=== PATIENT | male | born 1955 | race Caucasian/White ===

== ENCOUNTER 2021-03-21 17:07 | Emergency (ER) | payer MEDICARE, MEDICAID, SELFPAY ==
[2021-03-21 17:10] VITALS: BP 156/83; PULSE 94; RESP 16; TEMP 36.6; O2SAT 93
--- NOTE | 2021-03-21 17:10 | PC.NURSE ---
pt is extremely intoxicated, states he had several drinks at [employer] today and that PMH is none of RNs business and is not why he is here. pt refusing to provide information in regards to dog bite form.
[2021-03-21] MEDS: TETANUS,DIPHTHERIA,AC PERTUSSIS ADULT 0.5 ML (ADACEL) IM (17:53)
[2021-03-21] MEDS: cefTRIAXone 1 GM VIAL IM (17:54)
[2021-03-21] MEDS: LIDOCAINE HCL 1% LOCAL INJ 20 ML VIAL (17:55)
--- NOTE | 2021-03-21 18:00 | ED.WOUNDLAC ---
HPI - Wound/Laceration General Chief Complaint: Wound/Laceration Stated Complaint: dog bite on leg Time Seen by Provider: 03/21/21 17:11 Source: patient Mode of arrival: ambulatory Limitations: no limitations History of Present Illness HPI narrative: this is a 65-year-old gentleman that presents after a stray dog bit his left lower leg causing a laceration gaping about 4cm in length and his left lower leg, the patient is not up-to-date with his tetanus currently no fever chills no leg pain. Onset (ago): hour(s) Extremity Location: Left: lower leg ( gaping laceration about 4cm in length after dog bite) Place: outdoors Context: accidental Associated symptoms: none Related Data Home Medications Medication Instructions Recorded Confirmed albuterol sulfate 2 puff INHALATION PRN 03/21/21 03/21/21 famotidine 20 mg PO DAILY 03/21/21 03/21/21 hydrocodone-acetaminophen 1 tablet PO PRN 03/21/21 03/21/21 Allergies Allergy/AdvReac Type Severity Reaction Status Date / Time No Known Allergies Allergy Unverified 01/03/13 15:17 Review of Systems Review of Systems: All systems reviewed & are unremarkable except as noted in HPI and below PMFSH Past Medical History Medical History Patient denies medical problems Exam Const: General: no acute distress and alert Orientation/consciousness: patient oriented x3 HENMT: Head: normal to inspection Eyes: Conjunctivae: conjunctivae normal Pupils: Equal, round and reactive pupils present EOM: EOMs intact bilaterally Direct Ophthalmoscopy: no photophobia Neck: Neck: normal visual inspection, no lymphadenopathy and no meningeal signs Chest: Chest palpation & inspection: normal inspection of the chest Resp: Effort & Inspection: normal respiratory effort Auscultation: clear to auscultation bilaterally Cardio: Rate: regular rate Rhythm: regular rhythm Urinary Catheter: Urinary Catheter: patent and draining Back/Spine/Pelvis: Back: no CVA tenderness Skin: General skin exam: normal color Other: gaping laceration left lateral lower extremity about 4cm in length after a dog bite Extrem: General: normal to inspection and no pedal edema Psych: Appearance: grossly normal Mental Status: mental status grossly normal Course Course Emergency Course: the area was irrigated evaluated for any debris and sutures placed. Tetanus was updated and patient received a g of ceftriaxone. Vital Signs Vital signs: Vital Signs Temperature 36.6 C 03/21/21 17:10 Pulse Rate 94 03/21/21 17:10 Respiratory Rate 16 03/21/21 17:10 Blood Pressure 156/83 H 03/21/21 17:10 Pulse Oximetry 93 03/21/21 17:10 Temperature 36.6 C 03/21/21 17:10 Pulse Rate 94 03/21/21 17:10 Respiratory Rate 16 03/21/21 17:10 Blood Pressure 156/83 H 03/21/21 17:10 Pulse Oximetry 93 03/21/21 17:10 Procedures Laceration Laceration 1: Date: 03/21/21 Site: lower extremity Side (If applicable): left Size (cm): 4 Description: linear Depth: simple, single layer Local Anesthetic: lidocaine 1% Amount of anesthesia used (mL): 8 Pre-repair: wound explored and irrigated ====== Skin Level ====== Skin layer closed with: vicryl Size (cm): 4-0 Number of sutures: 8 ====== Subcutaneous Layer ====== ====== Muscle Layer ====== ====== Tendon Layer ====== Critical Care Time Critical Care Time Critical Care Time: No Discharge Plan Discharge Clinical Impression: Laceration Dog bite Qualifiers: Encounter type: initial encounter Qualified Code(s): W54.0XXA - Bitten by dog, initial encounter Patient Disposition: Home, Self-Care Condition: Stable Instructions: Antibiotic Form, Animal Bite (ED), Laceration (ED) Additional Instructions: take antibiotics as prescribed, follow-up with primary care physician in 1 week for suture rem
--- NOTE | 2021-03-21 18:04 | PC.NURSE ---
8 sutures placed in left lower leg laceration/dog bite
[2021-03-21 18:10] VITALS: PULSE 90; RESP 14; O2SAT 92
== END 2021-03-21 18:15 | disposition home or self-care (01) ==
PROVIDERS: Emergency Provider Emergency Medicine; PCP Family Medicine
DX: S81.812A Laceration without foreign body, left lower leg, initial encounter (principal); W54.0XXA Bitten by dog, initial encounter
CPT/HCPCS: 12002; 90471; 90715; 96372; 99283; J0696

== ENCOUNTER 2024-03-14 08:48 | Emergency (ER) | payer MEDICARE, SELFPAY ==
--- NOTE | ~2024-03-14 | XR_ITS ---
XR cervical spine 4-5V DATE: 03/14/2024 09:24 INDICATION: Neck pain, stiffness for one month TECHNIQUE: AP, open-mouth, lateral, similar views COMPARISON: None FINDINGS: C1 and C2 are normally aligned and the odontoid process is intact. No fracture or dislocati on or locked facet or prevertebral soft tissue swelling is detected. There is degenerative disc disease throughout the cervical spine, moderately severe at C2-3, C3-4, wi th mild retrolisthesis at each of these 2 levels. Moderate degenerative disc disease at C4-5 with mild anterolisthesis at this level. Severe degenerative disc disease at C5-6 and C6-7 with prominent anterior and posterior spurring, par ticularly at C5-6. There is prominent degenerative change at the apophyseal joints and uncovertebral joint spurring thro ughout the cervical spine, particularly at C4-5, C5-6 and C6-7. IMPRESSION: Severe cervical spondylosis; no fracture or dislocation or locked facet Reviewed, dictated and finalized at location B. IMPRESSION: Severe cervical spondylosis; no fracture or dislocation or locked f acet
[2024-03-14 08:48] VITALS: BP 145/83; PULSE 83; RESP 18; TEMP 36.2; O2SAT 99
[2024-03-14] MEDS: KETOROLAC 30 MG/ML VIAL (*BKC) IM (09:37)
--- NOTE | 2024-03-14 09:44 | ED.NECK ---
HPI - Neck Pain/Injury General Chief Complaint: Neck Pain/Injury Stated Complaint: stiff neck Source: patient Mode of arrival: ambulatory Limitations: no limitations History of Present Illness HPI Narrative: this is a 68-year-old gentleman that presents with neck pain and muscle stiffness has decreased range of motion secondary to a muscle stiffness and has been out of his pain medication and is establishing with a new primary care. No known injuries no fever chills no nausea vomiting no chest pain no shortness of breath. No neurological deficits no radiculopathy. MD complaint: neck pain Onset (ago): week(s) Severity: moderate Severity scale (1-10): 6 Quality: aching Duration: constant Related Data Allergies Allergy/AdvReac Type Severity Reaction Status Date / Time No Known Allergies Allergy Unverified 01/03/13 15:17 Review of Systems Review of Systems: All systems reviewed & are unremarkable except as noted in HPI and below PMFSH Past Medical History Medical History Patient denies medical problems Exam Const: General: healthy appearing Nutritional Appearance: well nourished Orientation/consciousness: patient oriented x3 Limitations: no limitations Neck: Neck: normal visual inspection, no lymphadenopathy and no meningeal signs Chest: Chest palpation & inspection: normal inspection of the chest Resp: Effort & Inspection: normal respiratory effort Auscultation: clear to auscultation bilaterally Cardio: Rate: regular rate Rhythm: regular rhythm Back/Spine/Pelvis: Back: no CVA tenderness Skin: General skin exam: normal color Rashes: no rashes Neuro: Other: Cervical pain with movement and palpation Extrem: General: normal to inspection Psych: Mental Status: mental status grossly normal Affect: normal affect Course Course Emergency Course: patient received a dose of Toradol and pain level has improved x-ray performed shows severe spondylosis otherwise no acute fractures. Vital Signs Vital signs: Vital Signs Temperature 36.2 C L 03/14/24 08:48 Pulse Rate 83 03/14/24 08:48 Respiratory Rate 18 03/14/24 08:48 Blood Pressure 145/83 H 03/14/24 08:48 Pulse Oximetry 99 03/14/24 08:48 Oxygen Delivery Room Air 03/14/24 08:48 Temperature 36.2 C L 03/14/24 08:48 Pulse Rate 83 03/14/24 08:48 Respiratory Rate 18 03/14/24 08:48 Blood Pressure 145/83 H 03/14/24 08:48 Pulse Oximetry 99 03/14/24 08:48 Oxygen Delivery Room Air 03/14/24 08:48 Critical Care Time Critical Care Time Critical Care Time: No Discharge Plan Discharge Clinical Impression: Cervical spondylosis Strain of neck muscle Qualifiers: Encounter type: initial encounter Qualified Code(s): S16.1XXA - Strain of muscle, fascia and tendon at neck level, initial encounter Patient Disposition: Home, Self-Care Condition: Stable Instructions: Antibiotic Form, Cervical Strain (ED), Arthritis (ED) Additional Instructions: advised patient to keep follow-up appointment with primary and take medicine as prescribed. Prescriptions: New oxycodone-acetaminophen [Percocet] 5-325 mg tablet 1 tablet PO Q6H PRN (Reason: pain) Qty: 20 0RF Follow-up/Referrals: Josselyn,MD Jose Eduardo [Primary Care Provider] - Time of Disposition: 09:48
[2024-03-14 10:01] VITALS: BP 154/94; PULSE 84; RESP 20; TEMP 36.2; O2SAT 98
== END 2024-03-14 10:01 | disposition home or self-care (01) ==
PROVIDERS: Emergency Provider Emergency Medicine; PCP Family Medicine
DX: M47.812 Spondylosis without myelopathy or radiculopathy, cervical region (principal); S16.1XXA Strain of muscle, fascia and tendon at neck level, initial encounter
CPT/HCPCS: 72050; 96372; 99283; J1885

== ENCOUNTER 2024-09-16 08:39 | Emergency (ER) | payer MEDICARE, MEDICAID, SELFPAY ==
--- NOTE | ~2024-09-16 | XR_ITS ---
EXAMINATION: XR chest ET placement DATE: 09/16/2024 09:09 INDICATION: Endotracheal tube placement. CODE BLUE. TECHNIQUE: frontal view of the chest was obtained. COMPARISON: None FINDINGS: Endotracheal tube tip 7.1 cm above the saleem. Cardiac defibrillator pads project over the left midlu ng in the lateral lower left chest wall. Airspace opacities at the right apex. Mild peripheral increa sed interstitial pattern with Alex B-lines at the bilateral lower lung zones consistent with minima l pulmonary edema. No pleural effusion or pneumothorax. The cardiomediastinal silhouette is normal. S evere cervical spondylosis. IMPRESSION: 1. Endotracheal tube tip 7.1 cm above the saleem. Consider advancement by 4-5 cm for more optimal pos itioning when clinically appropriate. 2. Opacities at the right apex which could represent pneumonia, atelectasis/scarring or malignancy. C onsider CT for further evaluation. 3. Minimal pulmonary edema in the lower lung zones. Reviewed, dictated and finalized at location A. IMPRESSION: 1. Endotracheal tube tip 7.1 cm above the saleem. Consider advancement by 4-5 c m for more optimal positioning when clinically appropriate. 2. Opacities at the right apex which could represent pneumonia, atelectasis/sca rring or malignancy. Consider CT for further evaluation. 3. Minimal pulmonary edema in the lower lung zones.
[2024-09-16 08:45] VITALS: PULSE 0; RESP 0
[2024-09-16] MEDS: SODIUM CHLORIDE 0.9% IV 1,000 ML 999 ML IV CONT (08:50)
--- NOTE | 2024-09-16 09:16 | ECG_ITS ---
Test Date: 2024-09-16 09:19:38 Measurements Intervals [place] Rate: 107 P: -34 NV: 62 QRS: -25 QRSD: 159 T: 0 QT: 340 QTc: 455 Interpretive Statements ECTOPIC ATRIAL OR JUNCTIONAL TACHYCARDIA WITH SHORT NV INTERVAL LEFT BUNDLE BRANCH BLOCK SEPTAL ST ELEVATION- CONSIDER ACUTE INJURY BASELINE ARTIFACT- V6 ABNORMAL ECG No previous ECG available for comparison Electronically Signed On 09-16-2024 10:50:24 [address] [employer] by Amando Proctor D.O.
[2024-09-16 09:20] LABS: Alanine Aminotransferase 21 U/L (16-63); Albumin Level 2.4 g/dL (3.4-5.0); Alkaline Phosphatase 91 U/L (46-116); Anion Gap 23 mmol/L (4-12); Aspartate Amino Transferase 44 U/L (15-37); Bilirubin,Total 0.4 mg/dL (0.00-1.00); Blood Urea Nitrogen 15 mg/dL (7-18); Calcium 8.4 mg/dL (8.5-10.1); Carbon Dioxide 10 mmol/L (21-32); Chloride 104 mmol/L (98-108); Estimated Glomerular Filt Rate 44; Glucose 205 mg/dL (70-99); Osmolality Calculated 290 mOsm/kg (285-295); Potassium 4.6 mmol/L (3.5-5.1); Sodium 137 mmol/L (136-145); Total Protein 5.8 g/dL (6.4-8.2)
[2024-09-16 09:21] LABS: Troponin I 1947.2 ng/L (0.00-60.4)
--- NOTE | 2024-09-16 10:10 | ED.CPR ---
HPI - CPR General Chief Complaint: Cardiac Arrest/CPR Stated Complaint: UNRESPONSIVE Source: other (friends) Mode of arrival: other (private vehicle) Limitations: clinical condition History of Present Illness HPI narrative: 69 year old male is brought to the Emergency Department by friends. Patient was at friends home this morning going to have his morning whiskey and pepsi. He advised friends he needed to go to the hospital and walked to the car, used his inhaler and then became unresponsive. Patient was unresponsive on arrival to the Emergency Department and was removed from private vehicle by ED personnel. Patient is apneic and pulseless on arrival to ED. ACLS initiated. complaint: other (became unresponsive en route to hospital in friends private vehicle) Onset (ago): unknown (within previous 10 minutes approximately) Timing confirmed by: other (friends bringing patient to hospital in private vehicle (became unresponsive en route)) Place: other (became unresponsive in friends private vehicle en route to hospital) Bystander CPR performed: No AED applied by bystander/certified surgical first assistant: No Shock advised: No Associated symptoms: shortness of breath Treatments prior to arrival: other (patient used his inhaler prior to becoming unresponsive) Related Data Allergies Allergy/AdvReac Type Severity Reaction Status Date / Time No Known Allergies Allergy Unverified 01/03/13 15:17 Review of Systems Review of Systems: ROS unobtainable: Yes unobtainable due to medical condition PMFSH Past Medical History Medical History Patient denies medical problems Exam Const: Other: apneic, pulseless, unresponsive HENMT: Head: normal to inspection Ears: external ears normal Face/Nose/Sinus: Normal external nose present Mouth: Yes Normal oral and palatal mucosa present Throat: uvula midline Eyes: Other: non-reactive Neck: Neck: normal visual inspection Chest: Chest palpation & inspection: normal inspection of the chest Resp: Auscultation: breath sounds absent Other: apneic Cardio: Other: pulseless GI: Inspection: non-distended : General: Yes bladder normal to palpation Penis: Yes normal penis Skin: Rashes: no rashes Wounds: no wounds Neuro: Other: unresponsive Extrem: General: no clubbing, cyanosis or edema Course Course Emergency Course: 69 y/o male arrives to the ED via POV. Patient advised friends he needed to come to hospital. He walked to car, used his inhaler and because unresponsive for 9 mile trip to hospital. Patient had to be removed from POV by ED personnel on arrival to ED. Patient is unresponsive, apneic and pulseless on arrival. ACLS initiated. PE: apneic, pulseless, unresponsive CMP: Na 137, K 4.6, Cl 104, CO2 10, Glc 205, BUN 15, Cr 1.55; LFT's AST 44 TNI: 1947.2 EKG: ST, ST elevation /lateral leads [very brief pulse obtained] CXR: ET in place, opacity R apex [atelct /infilt /malignancy ?] Tx: Patient intubated 7.5 Fr ET tube, placement confirmed by visualization cords, expanse of chest, breath sounds bilateral and then CXR. CPR performed. ACLS protocol followed. [incidentally atropine was given twice when flushing line and bicarbonate twice that was not ordered by EDP - I do not believe this had any deleterious effect] *resuscitative efforts unsuccessful, except for an approximate 3 minute period when faint tachy pulse was auscultated, however no peripheral pulses present and unable to sustain. EKG was obtained at that time which revealed STEMI /lateral. His TNI confirmed with significant elevation. Resuscitative efforts discontinued 0925. Patient 09. Vital Signs Vital signs: Vital Signs Pulse Rate 0 L 09/16/24 08:45 Respiratory Rate 0 L 09/16/24 08:45 Pulse Rate 0 L 09/16/24 08:45 Respiratory Rate 0 L 09/16/24 08:45 MDM - Cardiac Arrest/CPR MDM Narrative Medical decision making narrative: Patient arrived to the ED by POV unresponsive. Patient was brought into ED by ED personnel. He was found to be apneic, pulseless and unresponsive. ACLS performed. Intubated with 7.5 Fr ET tube and placement confirmed. Patient initially asystolic. He converted to PEA with tachy and normal rates without pulse. He had a very brief episode where rhythm was auscultated,however no pulse palpable peripherally. EKG was quickly obtained at that time which showed STEMI /Lat. Patient quickly went back to PEA. No treatable causes of PEA identified. Patient remained unresponsive to resuscitative efforts and 924 Differential Diagnosis Differential diagnosis: Likely acute myocardial infarction, cardiac arrest and sudden cardiac Medical Records Attestation: I reviewed the patient's medical records. Lab Data Attestation: I reviewed the patient's lab results. 09/16/24 08:57 09/16/24 08:57 Labs: Lab Results 09/16/24 Range/Units 08:57 WBC Cancelled RBC Cancelled Hgb Cancelled Hct Cancelled MCV Cancelled MCH Cancelled MCHC Cancelled RDW Cancelled Plt Count Cancelled MPV Cancelled Immature Gran % (Auto) Cancelled Neut % (Auto) Cancelled Lymph % (Auto) Cancelled [place] % (Auto) Cancelled Eos % (Auto) Cancelled Baso % (Auto) Cancelled Lymph # (Auto) Cancelled [place] # (Auto) Cancelled Eos # (Auto) Cancelled Baso # (Auto) Cancelled Abs Immat Gran (auto) Cancelled Absolute Neuts (auto) Cancelled Absolute Nucleated RBC Cancelled Nucleated RBC % Cancelled % Immature Plt Fraction Cancelled Sodium 137 (136-145) mmol/L Potassium 4.6 (3.5-5.1) mmol/L Chloride 104 (98-108) mmol/L Carbon Dioxide 10 L (21-32) mmol/L Anion Gap 23 H (4-12) mmol/L BUN 15 (7-18) mg/dL Creatinine 1.55 H (0.70-1.30) mg/dL Estim Creat Clear Calc Not Reportable Estimated GFR 44 L (59 - ) Glucose 205 H (70-99) mg/dL Calculated Osmolality 290 (285-295) mOsm/kg Calcium 8.4 L (8.5-10.1) mg/dL Total Bilirubin 0.4 (0.00-1.00) mg/dL AST 44 H (15-37) U/L ALT 21 (16-63) U/L Alkaline Phosphatase 91 (46-116) U/L Troponin I 1947.2 H* (0.00-60.4) ng/L Total Protein 5.8 L (6.4-8.2) g/dL Albumin 2.4 L (3.4-5.0) g/dL Imaging Data Attestation: I personally reviewed and interpreted this imaging study as follows: My impression: CXR: ET in place, no consolidation, effusion, pneumothorax or midline shift Radiologist's impression: CXR: ET 7 cm above saleem, opacity R apex which could represent atelectasis, infiltrate, malignancy ECG Data EKG #1: ECG completion date: 09/16/24 ECG completion time: 09:19 Prior ECG tracings: not available for review Ischemic changes: acute STEMI EKG Interpretation: tachycardia, sinus rhythm, ST elevation, widened QRS and left axis Critical Care Time Critical Care Time Total Critical Care Time: 40 Discharge Plan Discharge Clinical Impression: Sudden cardiac , Acute myocardial infarction Patient Disposition: Condition: Prescriptions: No Action oxycodone-acetaminophen [Percocet] 5-325 mg tablet 1 tablet PO Q6H PRN (Reason: pain) Qty: 20 0RF Follow-up/Referrals: UNKNOWN,DOCTOR [Primary Care Provider] - Time of Disposition: :25
--- NOTE | 2024-09-16 10:43 | PC.NURSE ---
0848 - IV#20 angio started in left f/a. 0850 - clothes removed. no sx of external trauma, hui cpr device applied. warm blanket applied. 0854 - IV #20 started in right f/a. 0855 - spoke with daughterkiana per phone, will come to hospital 0856 - spoke with ex- isael in [place]. states pt is a full code. states pt is an alcoholic. 0918 - no palpable femoral pulse, no audible heart tones with stethoscope per erp, no pulse with doppler per olivier silvestre. 0920 - erp feels faint pulse left femoral region. states it is tremor-like 0923 - ekg completed. 09 - code team reviews treatment and potential next steps. 09 - resuscitation attempt stopped. Time of recorded at 927. occasional agonal resp/swallow noted. pulselessness confirmed by erp at bedside. 0935 - [employer] [employer], mindi salazar, notified...will be En route 0936 - ex- at bedside speaking with erp. 0940 - daughterkiana notified of pt expiration. home information provided to this investment underwriter 0944 - [facility] contacted for their services...will be En route 1000 - [facility] [employer] arrives. spoke with erp and pt's ex-. released body for home. 1005 - [facility] contacted. pt information and family contact information provided to Rosaura 1010 - all medical tubes removed from pt. 1024 - [facility] staff arrives and collects pt remains.
== END 2024-09-16 10:24 | disposition expired ==
PROVIDERS: Emergency Provider Emergency Medicine
DX: I21.9 Acute myocardial infarction, unspecified (principal); I46.2 Cardiac arrest due to underlying cardiac condition
CPT/HCPCS: 31500; 36415; 80053; 84484; 92950; 93005; 99285; J0171; J0461; J7030